=== PATIENT | female | born 1985 | race Caucasian/White ===

== ENCOUNTER 2018-01-22 11:21 | Emergency (ER) | payer OTHER, SELFPAY ==
[2018-01-22 11:35] VITALS: BP 131/92; PULSE 77; RESP 16; TEMP 36.8; O2SAT 95; BMI 25.6
--- NOTE | 2018-01-22 18:41 | ED.URI ---
HPI - URI/Sore Throat <REBECA Bosch - Last Filed: 01/22/18 18:46> General Chief Complaint: Upper Respiratory Symptoms Stated Complaint: COUGHING BLOOD,'SINUSY',FACE SWOLLEN Time Seen by Provider: 01/22/18 13:55 Source: patient Mode of arrival: ambulatory Limitations: no limitations History of Present Illness HPI Narrative: Patient is a healthy 32-year-old female who presents with chief complaint of upper respiratory symptoms, stating she has a sinus infection. She complains of sinus headache, facial pressure, nasal congestion sore throat cough and specks of blood on cough. She denies any chest pain, shortness of breath, nausea vomiting diarrhea or abdominal pain. She has taken xuuo-zui-jqowrli cold medication help feel better. She has not tried any nasal sprays or nasal medication. She states she has a sinus infection. Related Data Home Medications Medication Instructions Recorded Confirmed alprazolam 2 mg PO BID 01/22/18 01/22/18 dextroamphetamine-amphetamine 10 - 20 mg PO BID 01/22/18 01/22/18 fluoxetine 60 mg PO DAILY 01/22/18 01/22/18 norethindrone-ethin estradiol 1 tab PO DAILY 01/22/18 01/22/18 [Nortrel 1/35 (28)] Allergies Allergy/AdvReac Type Severity Reaction Status Date / Time No Known Drug Allergies Allergy Verified 01/22/18 11:34 Review of Systems <REBECA Bosch - Last Filed: 01/22/18 18:46> Review of Systems GENERAL: Denies chills, fatigue, malaise, fever, sweats. HEENT: See HPI RESPIRATORY: See HPI CARDIOVASCULAR: Denies chest pain, palpitations, orthopnea, edema, GASTROINTESTINAL: Denies nausea, vomiting, abdominal pain, diarrhea, constipation, melena. : Denies dysuria, frequency, incontinence, hematuria, urinary retention. MUSCULOSKELETAL: denies weakness, joint pain, or bony pain SKIN: Denies rash, skin lesions, or other NEUROLOGIC: Denies weakness, headache, numbness, change in speech, confusion, seizures, incoordination. PSYCHIATRIC: No concerning psychosocial issues. 12 point review of systems is negative except for those stated above Exam <REBECA Bosch - Last Filed: 01/22/18 18:46> Narrative Exam Narrative: GENERAL: This is a well-nourished, well-developed patient, no acute distress HEAD: Atraumatic. Normocephalic. No temporal or scalp tenderness. Patient has pain on palpation of frontal maxillary sinuses. EYES: Pupils equal round and reactive. Extraocular motions intact. No scleral icterus. No injection or drainage. ENT: Nose without bleeding, purulent drainage or septal hematoma. Throat without erythema, tonsillar hypertrophy or exudate. Uvula midline. Airway patent. TMs pearly arciniega bilaterally. No canal erythema. NECK: Trachea midline. No JVD or lymphadenopathy. Supple, nontender, no meningeal signs. CARDIOVASCULAR: Regular rate and rhythm without murmurs, gallops, or rubs. RESPIRATORY: Clear to auscultation. Breath sounds equal bilaterally. No wheezes, rales, or rhonchi. No cough on exam. No increased respiratory effort. GASTROINTESTINAL: Abdomen soft, non-tender, nondistended. No hepato-splenomegaly, or palpable masses. No guarding. EXTREMITIES: No clubbing, cyanosis, or edema. No joint tenderness, effusion, or edema noted. BACK: Nontender without deformity or crepitance. No flank tenderness. NEURO: AOx3. SKIN: No rash or erythema. Initial Vital Signs Initial Vital Signs: Vital Signs Temperature 98.2 F 01/22/18 11:35 Pulse Rate 77 01/22/18 11:35 Respiratory Rate 16 01/22/18 11:35 Blood Pressure 131/92 H 01/22/18 11:35 Pulse Oximetry 95 01/22/18 11:35 <Yusra Juárez DO - Last Filed: 01/23/18 07:57> Initial Vital Signs Initial Vital Signs: Vital Signs Temperature 98.2 F 01/22/18 11:35 Pulse Rate 77 01/22/18 11:35 Respiratory Rate 16 01/22/18 11:35 Blood Pressure 131/92 H 01/22/18 11:35 Pulse Oximetry 95 01/22/18 11:35 Course <YOON Bosch - Last Filed: 01/22/18 18:46> Vital Signs - 8 hr 01/22/18 11:35 Temperature 98.2 F Pulse Rate 77 Respiratory Rate 16 Blood Pressure 131/92 H Pulse Oximetry 95 <Yusra Juárez DO - Last Filed: 01/23/18 07:57> Vital Signs - 8 hr 01/22/18 11:35 Temperature 98.2 F Pulse Rate 77 Respiratory Rate 16 Blood Pressure 131/92 H Pulse Oximetry 95 MDM - URI/Sore Throat <DESIREE BoschP-BC - Last Filed: 01/22/18 18:46> MDM Narrative Medical decision making narrative: Patient is a healthy 32-year-old female presenting with a chief complaint of a sinus infection, nasal congestion since last Sunday. I discussed at length with her and her mother that sinus symptoms do not get treated with antibiotics unless she has signs of systemic illness until she has the 10-14 day kin. I encouraged at length use of Flonase as well as Neti pot or jay med sinus rinse in the meantime. I offered to get a chest x-ray, check for strep and track for flu but the patient declined all of that further workup. Given that she is hemodynamically stable and has an overall benign exam, I feel that this is an appropriate course. I discussed at length return precautions of shortness of breath, fever, worsening as well as follow up with primary care provider continued [id number] support. Patient has no questions or concerns upon discharge. Discharge Plan Departure Patient Disposition: Home Clinical Impression: Upper respiratory infection Discharge Date/Time: 01/22/18 14:53 Interventions: ED Discharge Assessment Last Done: 01/22/18 14:48 Instructions: DI for Viral Upper Respiratory Infection -- Adult Activity Restrictions/Additional Instructions: Please rest, push fluids take [id number]-[id number] medications as needed and able. I suggest new med sinus rinse and or Neti pot combined with Flonase to help with her sinus pressure and pain. Please follow-up with primary care provider. We do not prescribe antibiotics for sinus infection unless it hits the 10-14 day range, especially if you do not have fever. Please follow-up with primary care provider if you hit this time frame and do not feel any better. Prescriptions: No Action dextroamphetamine-amphetamine 20 mg tablet 10 - 20 mg PO BID RF: 0 alprazolam 2 mg tablet 2 mg PO BID RF: 0 fluoxetine 20 mg capsule 60 mg PO DAILY RF: 0 norethindrone-ethin estradiol [Nortrel ()] 1-35 mg-mcg tablet 1 tab PO DAILY RF: 0 <Yusra Juárez DO - Last Filed: 01/23/18 07:57> Cosign ED Attending Cosignature Attestation: I was immediately available in the department for consultation. Documentation has been reviewed. I agree with assessment and plan.
--- NOTE | 2018-01-22 18:45 | ED_ITS ---
HPI - URI/Sore Throat <REBECA Bosch - Last Filed: 01/22/18 18:46> General Chief Complaint: Upper Respiratory Symptoms Stated Complaint: COUGHING BLOOD,'SINUSY',FACE SWOLLEN Time Seen by Provider: 01/22/18 13:55 Source: patient Mode of arrival: ambulatory Limitations: no limitations History of Present Illness HPI Narrative: Patient is a healthy 32-year-old female who presents with chief complaint of upper respiratory symptoms, stating she has a sinus infection. She complains of sinus headache, facial pressure, nasal congestion sore throat cough and specks of blood on cough. She denies any chest pain, shortness of breath, nausea vomiting diarrhea or abdominal pain. She has taken over-the- counter cold medication help feel better. She has not tried any nasal sprays or nasal medication. She states she has a sinus infection. Related Data Home Medications Medication Instructions Recorded Confirmed alprazolam 2 mg PO BID 01/22/18 01/22/18 dextroamphetamine-amphetamine 10 - 20 mg PO BID 01/22/18 01/22/18 fluoxetine 60 mg PO DAILY 01/22/18 01/22/18 norethindrone-ethin estradiol 1 tab PO DAILY 01/22/18 01/22/18 [Nortrel 1/35 (28)] Allergies Allergy/AdvReac Type Severity Reaction Status Date / Time No Known Drug Allergies Allergy Verified 01/22/18 11:34 Review of Systems <REBECA Bosch - Last Filed: 01/22/18 18:46> Review of Systems GENERAL: Denies chills, fatigue, malaise, fever, sweats. HEENT: See HPI RESPIRATORY: See HPI CARDIOVASCULAR: Denies chest pain, palpitations, orthopnea, edema, GASTROINTESTINAL: Denies nausea, vomiting, abdominal pain, diarrhea, constipation, melena. : Denies dysuria, frequency, incontinence, hematuria, urinary retention. MUSCULOSKELETAL: denies weakness, joint pain, or bony pain SKIN: Denies rash, skin lesions, or other NEUROLOGIC: Denies weakness, headache, numbness, change in speech, confusion, seizures, incoordination. PSYCHIATRIC: No concerning psychosocial issues. 12 point review of systems is negative except for those stated above Exam <REBECA Bosch - Last Filed: 01/22/18 18:46> Narrative Exam Narrative: GENERAL: This is a well-nourished, well-developed patient, no acute distress HEAD: Atraumatic. Normocephalic. No temporal or scalp tenderness. Patient has pain on palpation of frontal maxillary sinuses. EYES: Pupils equal round and reactive. Extraocular motions intact. No scleral icterus. No injection or drainage. ENT: Nose without bleeding, purulent drainage or septal hematoma. Throat without erythema, tonsillar hypertrophy or exudate. Uvula midline. Airway patent. TMs pearly arciniega bilaterally. No canal erythema. NECK: Trachea midline. No JVD or lymphadenopathy. Supple, nontender, no meningeal signs. CARDIOVASCULAR: Regular rate and rhythm without murmurs, gallops, or rubs. RESPIRATORY: Clear to auscultation. Breath sounds equal bilaterally. No wheezes , rales, or rhonchi. No cough on exam. No increased respiratory effort. GASTROINTESTINAL: Abdomen soft, non-tender, nondistended. No hepato-splenomegaly , or palpable masses. No guarding. EXTREMITIES: No clubbing, cyanosis, or edema. No joint tenderness, effusion, or edema noted. BACK: Nontender without deformity or crepitance. No flank tenderness. NEURO: AOx3. SKIN: No rash or erythema. Initial Vital Signs Initial Vital Signs: Vital Signs Temperature 98.2 F 01/22/18 11:35 Pulse Rate 77 01/22/18 11:35 Respiratory Rate 16 01/22/18 11:35 Blood Pressure 131/92 H 01/22/18 11:35 Pulse Oximetry 95 01/22/18 11:35 <Yusra Juárez DO - Last Filed: 01/23/18 07:57> Initial Vital Signs Initial Vital Signs: Vital Signs Temperature 98.2 F 01/22/18 11:35 Pulse Rate 77 01/22/18 11:35 Respiratory Rate 16 01/22/18 11:35 Blood Pressure 131/92 H 01/22/18 11:35 Pulse Oximetry 95 01/22/18 11:35 Course <YOON Bosch - Last Filed: 01/22/18 18:46> Vital Signs - 8 hr 01/22/18 11:35 Temperature 98.2 F Pulse Rate 77 Respiratory Rate 16 Blood Pressure 131/92 H Pulse Oximetry 95 <Yusra Juárez DO - Last Filed: 01/23/18 07:57> Vital Signs - 8 hr 01/22/18 11:35 Temperature 98.2 F Pulse Rate 77 Respiratory Rate 16 Blood Pressure 131/92 H Pulse Oximetry 95 MDM - URI/Sore Throat <DESIREE BoschP-BC - Last Filed: 01/22/18 18:46> MDM Narrative Medical decision making narrative: Patient is a healthy 32-year-old female presenting with a chief complaint of a sinus infection, nasal congestion since last Sunday. I discussed at length with her and her mother that sinus symptoms do not get treated with antibiotics unless she has signs of systemic illness until she has the 10-14 day kin. I encouraged at length use of Flonase as well as Neti pot or jay med sinus rinse in the meantime. I offered to get a chest x-ray, check for strep and track for flu but the patient declined all of that further workup. Given that she is hemodynamically stable and has an overall benign exam, I feel that this is an appropriate course. I discussed at length return precautions of shortness of breath, fever, worsening as well as follow up with primary care provider continued [id number] support. Patient has no questions or concerns upon discharge. Discharge Plan Departure Patient Disposition: Home Clinical Impression: Upper respiratory infection Discharge Date/Time: 01/22/18 14:53 Interventions: ED Discharge Assessment Last Done: 01/22/18 14:48 Instructions: DI for Viral Upper Respiratory Infection -- Adult Activity Restrictions/Additional Instructions: Please rest, push fluids take onty-imh-wnnodei medications as needed and able. I suggest new med sinus rinse and or Neti pot combined with Flonase to help with her sinus pressure and pain. Please follow-up with primary care provider. We do not prescribe antibiotics for sinus infection unless it hits the 10-14 day range, especially if you do not have fever. Please follow-up with primary care provider if you hit this time frame and do not feel any better. Prescriptions: No Action dextroamphetamine-amphetamine 20 mg tablet 10 - 20 mg PO BID RF: 0 alprazolam 2 mg tablet 2 mg PO BID RF: 0 fluoxetine 20 mg capsule 60 mg PO DAILY RF: 0 norethindrone-ethin estradiol [Nortrel ()] 1-35 mg-mcg tablet 1 tab PO DAILY RF: 0 <Yusra Juárez DO - Last Filed: 01/23/18 07:57> Cosign ED Attending Cosignature Attestation: I was immediately available in the department for consultation. Documentation has been reviewed. I agree with assessment and plan.
== END 2018-01-22 14:53 | disposition home or self-care (01) ==
PROVIDERS: Emergency Provider Nurse Practitioner Family
DX: J06.9 Acute upper respiratory infection, unspecified (principal)
CPT/HCPCS: 99282

== ENCOUNTER 2020-06-03 15:19 | Emergency (ER) | payer OTHER, SELFPAY ==
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
[2020-06-03 15:30] VITALS: BP 130/79; PULSE 67; RESP 17; O2SAT 99
[2020-06-03 15:32] VITALS: BP 161/68; PULSE 82; RESP 20; TEMP 37.1; O2SAT 98; BMI 26.5
--- NOTE | 2020-06-03 15:49 | PC.NURSE ---
Pt's mother contacted per pt's request and asked to come see the pt
[2020-06-03 16:30] VITALS: BP 119/75; PULSE 64; RESP 15; O2SAT 100
[2020-06-03] MEDS: IBUPROFEN 400 MG TABLET 800 MG PO (16:55)
== END 2020-06-03 17:04 | disposition home or self-care (01) ==
PROVIDERS: Emergency Provider Emergency Medicine
DX: S16.1XXA Strain of muscle, fascia and tendon at neck level, initial encounter (principal); V49.40XA Driver injured in collision with unspecified motor vehicles in traffic accident, initial encounter
CPT/HCPCS: 71045; 72040; 99283

== ENCOUNTER 2020-06-09 19:55 | Emergency (ER) | payer OTHER, SELFPAY ==
[2020-06-09 20:08] VITALS: BP 112/75; PULSE 60; RESP 20; TEMP 36.7; O2SAT 98
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
== END 2020-06-10 00:47 | disposition home or self-care (01) ==
PROVIDERS: Emergency Provider Emergency Medicine
DX: F07.81 Postconcussional syndrome (principal); H53.8 Other visual disturbances; M54.2 Cervicalgia; R07.89 Other chest pain
CPT/HCPCS: 72125; 99281; 99284

== ENCOUNTER 2021-05-14 20:26 | Emergency (ER) | payer OTHER, MEDICAID, SELFPAY ==
[2021-05-14 20:33] VITALS: BP 126/92; PULSE 83; RESP 18; TEMP 36.9; O2SAT 96; BMI 26.5
--- NOTE | 2021-05-14 22:34 | DI.RAD.S_ITS ---
PROCEDURE: XR CHEST 1V INDICATIONS: chest pain TECHNIQUE: One view of the chest was acquired. COMPARISON: [facility], CR, XR CHEST 1V, 06/03/2020, 15:35. FINDINGS: Surgical changes and devices: None. Lungs and pleura: Lungs are clear. No pleural effusions or pneumothorax. Mediastinum: Mediastinal contours appear normal. Heart size is normal. Bones and chest wall: No suspicious bony lesions. Overlying soft tissues appear unremarkable. IMPRESSION: Normal for age, source of current chest pain symptoms is not seen. Dictated by: Slick Hall M.D. on 05/14/2021 at 23:18 Approved by: Slick Hall M.D. on 05/14/2021 at 23:19
[2021-05-14 22:55] LABS: Add Manual Diff / Slide Review NO; Basophils Absolute Auto 0 /uL (0-100); Basophils Percent Auto 0.3 % (0-2); Eosinophils Absolute Auto 100 /uL (0-450); Eosinophils Percent Auto 1.3 % (2-4); Hematocrit 42.2 % (36-46); Hemoglobin 14.3 g/dL (12.0-16.0); Lymphocytes Absolute Auto 3300 /uL (1100-4500); Lymphocytes Percent Auto 37.9 % (25-40); Mean Corpuscular HGB Conc 33.8 % (30-36); Mean Corpuscular Hemoglobin 29.2 PG (26-34); Mean Corpuscular Volume 86.5 fL (80-100); Monocytes Absolute Auto 800 /uL (0-900); Monocytes Percent Auto 9.2 % (3-14); Neutrophils Absolute Auto 4500 /uL (1500-7000); Neutrophils Percent Auto 51.3 % (50-75); Platelet Count 270 X10^3/uL (150-400); Red Blood Cell Count 4.88 X10^6/uL (4.0-5.2); Red Cell Distribution Width 13.9 % (11.6-14.8); White Blood Cell Count 8.7 X10^3/uL (4.5-11.0)
[2021-05-14] MEDS: LORazepam 0.5 MG TABLET 1 MG PO (22:59)
[2021-05-14 23:04] VITALS: PULSE 54; RESP 11
[2021-05-14 23:06] VITALS: BP 120/75; PULSE 50; RESP 13; O2SAT 100
[2021-05-14 23:06] LABS: Alanine Aminotransferase 15 IU/L (<35); Albumin 4.7 g/dL (3.5-5.0); Albumin Globulin Ratio 1.4 (1.0-2.8); Alkaline Phosphatase 65 U/L (38-126); Aspartate Aminotransferase 26 IU/L (14-36); BUN Creatinine Ratio 22.5 (6-22); Bilirubin Total 0.5 mg/dL (0.2-1.3); Blood Urea Nitrogen 16 mg/dL (7-17); Calcium 9.7 mg/dL (8.4-10.2); Carbon Dioxide 24 mmol/L (22-32); Chloride 103 mmol/L (98-107); Creatine Kinase 39 U/L (30-135); Estimated Glomerular Filt Rate > 60.0 mL/min (>60); Globulin 3.3 g/dL (1.7-4.1); Glucose 88 mg/dL (70-100); HEMOLYSIS < 15 (0-50); Lipase 103 U/L (23-300); Sodium 136 mmol/L (137-145)
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
[2021-05-14 23:18] LABS: Troponin I < 0.012 ng/mL (0.01-0.034)
[2021-05-14 23:30] VITALS: BP 133/78; PULSE 59; RESP 17; O2SAT 98
--- NOTE | 2021-05-14 23:56 | PC.NURSE ---
patient is having anxiety due to multiple life stressors. She is currently living in a VRBO, for a few weeks, she has family near by but still is struggling with her anxiety symptoms.
[2021-05-15] VITALS: BP 116/70; PULSE 59; RESP 11; O2SAT 98
== END 2021-05-15 00:29 | disposition home or self-care (01) ==
PROVIDERS: Emergency Provider Emergency Medicine
DX: F41.9 Anxiety disorder, unspecified (principal); F07.81 Postconcussional syndrome; R07.9 Chest pain, unspecified
CPT/HCPCS: 36415; 71045; 80053; 82550; 82553; 83690; 84484; 85025; 93005; 93010; 99284

== ENCOUNTER 2022-02-25 04:51 | Emergency (ER) | payer OTHER, MEDICAID, SELFPAY ==
[2022-02-25 04:57] VITALS: BP 127/79; PULSE 103; RESP 18; TEMP 37.3; O2SAT 96
[2022-02-25 05:55] LABS: Influenza A - CEPHEID Flu A NEGATIVE (NEGATIVE); Influenza B - CEPHEID Flu B NEGATIVE (NEGATIVE); Respiratory Syncytial Virus Negative (Negative)
[2022-02-25 06:03] LABS: COVID-19 CEPHEID 4-PLEX PCR Negative (Negative)
--- NOTE | 2022-02-25 06:22 | ED_ITS ---
HPI - General Adult General Chief complaint: Upper Respiratory Symptoms Stated complaint: SORE THROAT/COUGH Time Seen by Provider: 02/25/22 05:38 Source: patient Mode of arrival: Ambulatory Limitations: no limitations History of Present Illness HPI narrative: 28-year-old female who is here for evaluation of a couple days of sinus congestion, sore throat, cough, fullness in her ears. She has been taking Benadryl at home at night without much improvement. No fevers. No skin rashes. No problems breathing. Has had decreased oral intake because of the sore throat. Related Data Home Medications Medication Instructions Recorded Confirmed propranolol 60 mg capsule,24 60 mg PO DAILY 12/27/21 01/24/22 hr,extended release sertraline 100 mg tablet 100 mg PO DAILY 12/27/21 01/24/22 Previous Rx's Medication Instructions Recorded acyclovir 400 mg tablet 400 mg PO TID #30 tabs 01/04/22 quetiapine 25 mg tablet 25 mg PO BEDTIME #90 tabs 01/04/22 alprazolam 1 mg tablet 1 mg PO BID PRN anxiety #30 tabs 02/14/22 Allergies Allergy/AdvReac Type Severity Reaction Status Date / Time No Known Drug Allergies Allergy Verified 01/24/22 11:42 Review of Systems Constitutional Constitutional: Reports system reviewed and no additional complaints, except as documented ENT Ears, Nose, Mouth, and Throat: Reports system reviewed and no additional complaints, except as documented Respiratory Respiratory: Reports system reviewed and no additional complaints, except as documented Integumentary/Breasts Skin/Breast: Reports system reviewed and no additional complaints, except as documented Allergic/Immunologic Allergic/Immunologic: Reports system reviewed and no additional complaints, except as documented Patient History Medical History Abnormal Pap smear of cervix ADHD (~2011) Anxiety (~2011) Bipolar disorder (~2011) Cervical cancer Chronic back pain (~2020) Depression (~2011) Endometriosis Human papilloma virus Insomnia Painful menstrual periods Shoulder pain Surgical History (Updated 01/23/22 @ 22:12 by Jessika Caputo) Anesthesia H/O LEEP (~2016) History of endometrial ablation (~2016) Social History Smoking Status: Never smoker Smoking Status: Never smoker alcohol intake frequency: a few times a week Substance Use Type: marijuana Exam Initial Vital Signs Initial Vital Signs: Vital Signs Temperature 99.1 F 02/25/22 04:57 Pulse Rate 103 H 02/25/22 04:57 Respiratory Rate 18 02/25/22 04:57 Blood Pressure 127/79 02/25/22 04:57 Pulse Oximetry 96 02/25/22 04:57 Oxygen Delivery Method 02/25/22 04:57 Const General: cooperative, comfortable, well developed and No ill appearing HENMT Ears: EAC's normal and TM abnormal bulging bilaterally Mouth: oral mucosae normal and moist mucous membranes Throat: posterior oropharynx normal Resp Effort & Inspection: normal respiratory effort Auscultation: clear to auscultation bilaterally Skin General: no rashes or lesions noted Neuro General: patient alert, patient awake and moves all extremities Course Orders Ordered: ED Orders 02/25/22 05:00 Covid-19 + FLU A/B + RSV - PCR Stat 02/25/22 05:03 Consult to MANAGER TECHNICAL TRAINING - [employer] Professional Stat Vital Signs Vital signs: Vital Signs - 8 hr 02/25/22 04:57 Temperature 99.1 F Pulse Rate 103 H Respiratory Rate 18 Blood Pressure 127/79 Pulse Oximetry 96 Oxygen Delivery Method Room Air Medical Decision Making Lab Data Labs: Lab Results 02/25/22 Range/Units 05:00 SARS-CoV-2 (PCR) Negative (Negative) Influenza A (RT-PCR) Flu a negative (NEGATIVE) Influenza B (RT-PCR) Flu b negative (NEGATIVE) RSV (PCR) Negative (Negative) Point of Care Testing Rapid Strep A Negative Point of care testing: Point of Care Testing Rapid Strep A Negative MDM Narrative Medical decision making narrative: Rapid strep negative. Flu COVID and RSV are negative. She has history and physical consistent with upper respiratory infection. No indication for antibiotics. We did discuss things that she can tried home to try to help with her symptoms. She was given return precautions. She expressed understanding and agreement. Discharge Plan Departure Patient Disposition: Home Clinical Impression: Upper respiratory infection Instructions: DI for Viral Upper Respiratory Infection -- Adult Activity Restrictions/Additional Instructions: You can try antihistamines such as Benadryl or you could also try the daily medicines such as Claritin or Jaja Zyrtec. You can also try nasal sprays such as Nasonex or Flonase. The generic version of these medications are very appropriate. Sure to increase your fluid intake. You continue to take Tylenol/ibuprofen for any fevers or body aches. Return to the emergency department for any new or worsening symptoms. Prescriptions: No Action sertraline 100 mg tablet 100 mg PO DAILY propranolol 60 mg capsule,extended release 24 hr 60 mg PO DAILY Hold Instructions: pt stopped acyclovir 400 mg tablet 400 mg PO TID Qty: 30 3RF quetiapine 25 mg tablet 25 mg PO BEDTIME Qty: 90 0RF Rx Instructions: Take one tab nightly for 2 weeks, then 2 tabs nightly for 2 weeks, then 3 tabs nightly alprazolam 1 mg tablet 1 mg PO BID PRN (Reason: anxiety) Qty: 30 0RF Referrals: Marychuy Bueno MD [Primary Care Provider] -
[2022-02-25 06:35] VITALS: BP 124/70; PULSE 88; RESP 18; TEMP 36.9; O2SAT 97
== END 2022-02-25 06:36 | disposition home or self-care (01) ==
PROVIDERS: Emergency Provider Emergency Medicine; PCP Family Medicine
DX: J06.9 Acute upper respiratory infection, unspecified (principal); Z20.822 Contact with and (suspected) exposure to COVID-19
CPT/HCPCS: 0241U; 87880; 99282

== ENCOUNTER 2022-03-12 17:53 | Emergency (ER) | payer OTHER, MEDICAID, SELFPAY ==
[2022-03-12 18:02] VITALS: BP 149/84; PULSE 127; RESP 24; TEMP 37; O2SAT 99; BMI 28.3
[2022-03-12 19:35] LABS: Add Manual Diff / Slide Review NO; Basophils Absolute Auto 0 /uL (0-100); Basophils Percent Auto 0.3 % (0-2); Eosinophils Absolute Auto 100 /uL (0-450); Eosinophils Percent Auto 1.2 % (2-4); Hematocrit 38.5 % (36-46); Lymphocytes Absolute Auto 2900 /uL (1100-4500); Lymphocytes Percent Auto 35.4 % (25-40); Mean Corpuscular HGB Conc 33.7 % (30-36); Mean Corpuscular Hemoglobin 28.3 PG (26-34); Mean Corpuscular Volume 83.9 fL (80-100); Monocytes Absolute Auto 600 /uL (0-900); Monocytes Percent Auto 7.1 % (3-14); Neutrophils Absolute Auto 4600 /uL (1500-7000); Platelet Count 442 X10^3/uL (150-400); Red Blood Cell Count 4.58 X10^6/uL (4.0-5.2); Red Cell Distribution Width 13.4 % (11.6-14.8); White Blood Cell Count 8.2 X10^3/uL (4.5-11.0)
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
[2022-03-12 19:49] LABS: Acetaminophen < 10 ug/mL (10-30); Alanine Aminotransferase 19 IU/L (<35); Alkaline Phosphatase 74 U/L (38-126); Aspartate Aminotransferase 24 IU/L (14-36); BUN Creatinine Ratio 15.6 (6-22); Bilirubin Total 0.2 mg/dL (0.2-1.3); Blood Urea Nitrogen 10 mg/dL (7-17); Calcium 8.9 mg/dL (8.4-10.2); Carbon Dioxide 27 mmol/L (22-32); Chloride 100 mmol/L (98-107); Estimated Glomerular Filt Rate > 60 mL/min (>60); Ethanol (ETOH) < 10 mg/dL; Glucose 100 mg/dL (70-100); HEMOLYSIS < 15 (0-50); Potassium 3.7 mmol/L (3.4-5.1); Salicylate < 1.0 mg/dL (<20); Sodium 139 mmol/L (137-145); Total Protein 8.1 g/dL (6.3-8.2)
[2022-03-12 19:58] LABS: UR Morphine/Opiate cutoff 300 Negative (Negative); Ur Creatinine Normal (Normal); Ur Specific Gravity Normal (Normal); Urine Amphetamines Negative (Negative); Urine Barbiturates Negative (Negative); Urine Benzodiazepines Positive (Negative); Urine Cocaine Negative (Negative); Urine MDMA Negative (Negative); Urine Methadone Negative (Negative); Urine Methamphetamines Negative (Negative); Urine Oxycodone Negative (Negative); Urine Phencyclidine Negative (Negative); Urine Tetrahydrocannabinol Positive (Negative); Urine Tricyclic Antidepressant Negative (Negative); Urine pH Normal (Normal)
[2022-03-12 20:00] LABS: Bacteria Urine Few (2-10); Culture Indicated Urine Specimen Cultured; RBC Urine 0-1/HPF (0-5/HPF); Squamous Epithelial Cell Urine 1-5 /HPF (0-5/HPF); WBC Urine 5-10/HPF (0-5/HPF)
[2022-03-12 20:19] LABS: Thyroid Stimulating Hormone 1.57 uIU/mL (0.47-4.68)
[2022-03-12] MEDS: clonazePAM 0.5 MG TABLET 1 MG PO (21:31)
[2022-03-12] MEDS: PROPRANOLOL 10 MG TABLET 20 MG PO (21:31)
[2022-03-12 21:49] LABS: Albumin 4.4 g/dL (3.5-5.0); Albumin Globulin Ratio 1.2 (1.0-2.8); Globulin 3.7 g/dL (1.7-4.1)
[2022-03-12 23:17] VITALS: BP 138/74; PULSE 68; RESP 14; TEMP 36.3; O2SAT 99
== END 2022-03-12 23:21 | disposition home or self-care (01) ==
PROVIDERS: Emergency Provider Emergency Medicine; PCP Family Medicine
DX: F07.81 Postconcussional syndrome (principal); F41.9 Anxiety disorder, unspecified; H93.13 Tinnitus, bilateral; Z60.4 Social exclusion and rejection
CPT/HCPCS: 80053; 80305; 80320; 80329; 81003; 81015; 81025; 84439; 84443; 85025; 87086; 93005; 99284; G0480

== ENCOUNTER → 2023-08-09 18:48 | Outpatient (CLI) | payer OTHER, MEDICAID, SELFPAY ==
[2023-08-09 20:10] LABS: Influenza A - CEPHEID Flu A NEGATIVE (NEGATIVE); Influenza B - CEPHEID Flu B NEGATIVE (NEGATIVE); Respiratory Syncytial Virus Negative (Negative)
[2023-08-09 20:14] LABS: COVID-19 CEPHEID 4-PLEX PCR Negative (Negative)
== END ==
PROVIDERS: PCP Family Medicine; Visit Provider Nurse Practitioner Family
DX: R05.9 Cough, unspecified (principal); J02.9 Acute pharyngitis, unspecified
CPT/HCPCS: 87635; 87400 ×2; 87420; 0241U; 87070; 87147

== ENCOUNTER → 2024-03-19 14:46 | Outpatient (CLI) | payer OTHER, SELFPAY ==
--- NOTE | 2024-03-19 14:50 | DI.RAD.S_ITS ---
PROCEDURE: XR CHEST 2V INDICATIONS: Cough, DEAN TECHNIQUE: 2 views of the chest were acquired. COMPARISON: [facility], CR, XR CHEST 1V, 05/14/2021, 22:41. FINDINGS: Surgical changes and devices: None. Lungs and pleura: Lungs are clear. No pleural effusions or pneumothorax. Mediastinum: Mediastinal contours are normal. Heart size is normal. Bones and chest wall: No suspicious bony abnormalities. Soft tissues appear unremarkable. IMPRESSION: No acute cardiopulmonary pathology. Dictated by: Sergio Estrada M.D. on 03/19/2024 at 16:05 Approved by: Sergio Estrada M.D. on 03/19/2024 at 16:05
== END ==
PROVIDERS: PCP Family Medicine; Referring Provider Physician Assistant Surgical; Visit Provider Physician Assistant Surgical
DX: R05.1 Acute cough (principal)
CPT/HCPCS: 0241U; 71046

== ENCOUNTER → 2024-03-19 16:07 | Outpatient (CLI) | payer OTHER, SELFPAY ==
[2024-03-19 16:57] LABS: COVID-19 CEPHEID 4-PLEX PCR Negative (Negative); Influenza A - CEPHEID Flu A POSITIVE (NEGATIVE); Influenza B - CEPHEID Flu B NEGATIVE (NEGATIVE); Respiratory Syncytial Virus Negative (Negative)
== END ==
PROVIDERS: PCP Family Medicine; Visit Provider Physician Assistant Surgical
DX: R05.1 Acute cough (principal)
CPT/HCPCS: 87635; 87400 ×2; 87420; 0241U

== ENCOUNTER 2024-06-06 21:46 | Emergency (ER) | payer OTHER, SELFPAY ==
[2024-06-06 21:50] VITALS: BP 143/67; PULSE 101; RESP 18; TEMP 36.1; O2SAT 96; BMI 31.1
[2024-06-06 23:00] VITALS: BP 139/77; PULSE 92; RESP 16; O2SAT 100
--- NOTE | 2024-06-06 23:50 | ED_ITS ---
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 Today at work she bent over and was lifting some beer into a cooler and felt a pop in the trapezius area of her neck and back. After that is having increased pain and heaviness into the right arm. She is not able to independently lift it or externally rotate. She is neurovascularly intact. Related Data Home Medications Medication Instructions Recorded Confirmed propranolol 60 mg capsule,24 60 mg PO DAILY 12/27/21 03/19/24 hr,extended release Previous Rx's Medication Instructions Recorded quetiapine 25 mg tablet See Rx Instructions .Route 06/05/22 .COMPLEX #90 tabs clonazepam 0.5 mg tablet 0.5 mg PO DAILY #30 tabs 06/21/22 propranolol 20 mg tablet See Rx Instructions .Route 09/18/22 .COMPLEX #60 tabs alprazolam 1 mg tablet 1 mg PO BID PRN anxiety #30 tabs 11/21/22 sertraline 100 mg tablet 100 mg PO DAILY #30 tabs 03/12/23 acyclovir 400 mg tablet 400 mg PO TID #30 tabs 03/07/24 benzonatate 200 mg capsule 200 mg PO BID PRN cough #30 caps 03/19/24 ipratropium bromide 21 mcg (0.03 2 spray intranasal BID PRN nasal 03/19/24 %) nasal spray congestion #30 mL oxycodone-acetaminophen 5 mg-325 1 tab PO Q6H PRN pain #14 tabs 06/07/24 mg tablet Allergies Allergy/AdvReac Type Severity Reaction Status Date / Time No Known Drug Allergies Allergy Verified 03/19/24 14:08 Review of Systems Review of Systems Narrative: Pertinent positive and negative findings as per HPI Patient History Medical History Insomnia Depression (~2011) Anxiety (~2011) Shoulder pain Chronic back pain (~2020) Painful menstrual periods Human papilloma virus Endometriosis Abnormal Pap smear of cervix Cervical cancer Bipolar disorder (~2011) ADHD (~2011) Surgical History Anesthesia H/O LEEP (~2017) History of endometrial ablation (~2017) Social History Smoking Status: Never smoker Smoking Status: Never smoker alcohol intake frequency: 0-2 drinks per day Exam Initial Vital Signs Initial Vital Signs: Vital Signs Temperature 97 F L 06/06/24 21:50 Pulse Rate 101 H 06/06/24 21:50 Respiratory Rate 18 06/06/24 21:50 Blood Pressure 143/67 H 06/06/24 21:50 Pulse Oximetry 96 06/06/24 21:50 Oxygen Delivery Method Room Air 06/06/24 21:50 General: Alert appropriate in no acute distress Respiratory: Able to speak in full sentences, no obvious respiratory distress Skin: No obvious rashes, warm and dry Neurologic: Grossly intact no obvious asymmetries or abnormalities Psych: appropriate insight and affect, cooperative Extremity: She has some paraspinous tenderness along the cervical spine extending into significant tenderness midportion of the trapezius muscle on the right side. This seems to extend to the posterior portion of the rotator cuff. No clavicular, AC joint or proximal humeral pain or discomfort. She is able to fully extend her elbow and wrist without pain if the humerus is stabilized. She is neurovascularly intact Course Vital Signs Vital signs: Vital Signs - 8 hr 06/06/24 21:50 Temperature 97 F L Pulse Rate 101 H Respiratory Rate 18 Blood Pressure 143/67 H Pulse Oximetry 96 Oxygen Delivery Method Room Air MDM - Back Pain/Injury MDM Narrative Medical decision making narrative: 39-year-old woman with acute pain in the trapezius and posterior rotator cuff area of the right shoulder. She describes an initial minor injury 2-3 weeks ago and then while reaching down in lifting container earlier today felt a dramatic pop in the posterior portion of her shoulder. Exam does not show we will significant bruising or contusion. I do not think that this is a cervical radiculopathy. She is able to straighten her arm if her humerus stabilized but is not able to independently move her humerus abduction, adduction, internal external rotation without significant pain. There is pain throughout the center portion of the trapezius muscle. I suspect that this is either trapezius muscle tear or tear into the posterior portion of the rotator cuff. She is tender enough that more thorough exam is challenging at this point and specific diagnosis is not able to be elucidated with physical exam. Discussed pain control, ice, sling use and follow up with primary care physician. Once the pain is not quite so severe and were able to more localize area of concern she likely will benefit from advanced imaging such as MRI as an outpatient. At this point she is safe for discharge home Procedure: Right sling placed by nursing staff. Patient is more comfortable with support. She was neurovascularly intact pre and post placement. Discharge Plan Departure Patient Disposition: Home Clinical Impression: Shoulder sprain Qualifiers: Encounter type: initial encounter Shoulder sprain type: unspecified sprain Laterality: right Qualified Code(s): S43.401A - Unspecified sprain of right shoulder joint, initial encounter Instructions: DI for Shoulder Sprain Activity Restrictions/Additional Instructions: Thank you for coming in today You clearly injured something in the posterior part of your trapezius muscle into the back part of your shoulder. You are having too much pain right now for me to do a more complete exam to determine the exact location of the injury. As the pain improves slightly your primary care physician we will need to see you to determine what the next steps for definitive diagnosis and treatment will be. I suspect you will need an MRI for final diagnosis. In the meantime, using 400 mg of ibuprofen (2 [id number] pills) and 1 Tylenol every 6 hours can be very helpful in controlling pain. For severe pain you can use to ibuprofen and 1 Percocet. Percocet is a narcotic we will cause constipation and does have the potential for addiction. It should not be mixed with benzodiazepines such as clonazepam or alprazolam. A prescription was electronically transmitted to [facility] in [place] If you find that you are getting worse or develop any new symptoms, please feel free to return to the emergency department for further evaluation. Prescriptions: New oxycodone-acetaminophen 5-325 mg tablet 1 tab PO Q6H PRN (Reason: pain) Qty: 14 0RF No Action benzonatate 200 mg capsule 200 mg PO BID PRN (Reason: cough) Qty: 30 0RF ipratropium bromide 21 mcg (0.03 %) spray,non-aerosol 2 spray intranasal BID PRN (Reason: nasal congestion) Qty: 30 0RF Rx Instructions: administer into each nostril propranolol 60 mg capsule,extended release 24 hr 60 mg PO DAILY Hold Instructions: pt stopped quetiapine 25 mg tablet See Rx Instructions .ROUTE .COMPLEX Qty: 90 1RF Dose Instruction: TAKE 3 TABLETS (75mg) BY MOUTH NIGHTLY Rx Instructions: TAKE 3 TABLETS (75mg) BY MOUTH NIGHTLY clonazepam 0.5 mg tablet 0.5 mg PO DAILY Qty: 30 0RF propranolol 20 mg tablet See Rx Instructions .ROUTE .COMPLEX Qty: 60 0RF Dose Instruction: take 1 tablet by mouth twice a day if needed for anxiety Rx Instructions: take 1 tablet by mouth twice a day if needed for anxiety alprazolam 1 mg tablet 1 mg PO BID PRN (Reason: anxiety) Qty: 30 0RF sertraline 100 mg tablet 100 mg PO DAILY Qty: 30 3RF acyclovir 400 mg tablet 400 mg PO TID Qty: 30 3RF Referrals: Marychuy Bueno MD [Primary Care Provider] - Stand Alone Forms: Patient Portal/API/Survey
[2024-06-07 00:30] VITALS: BP 126/66; PULSE 79; RESP 16; O2SAT 98
[2024-06-07] MEDS: OXYCODONE/APAP 5/325 PREPACK 1 BOTTLE MISC (00:42)
== END 2024-06-07 00:59 | disposition home or self-care (01) ==
PROVIDERS: Emergency Provider Emergency Medicine; PCP Family Medicine
DX: S43.401A Unspecified sprain of right shoulder joint, initial encounter (principal); X50.0XXA Overexertion from strenuous movement or load, initial encounter
CPT/HCPCS: 99281; 99283

== ENCOUNTER 2024-11-21 11:53 | Emergency (ER) | payer OTHER, SELFPAY ==
[2024-11-21 12:02] VITALS: BP 122/81; PULSE 104; RESP 16; TEMP 36.9; O2SAT 100; BMI 26.5
--- NOTE | 2024-11-21 12:06 | DI.RAD.S_ITS ---
PROCEDURE: XR SHOULDER RT MIN 2V INDICATIONS: pain TECHNIQUE: 3 views of the shoulder were acquired. COMPARISON: None. FINDINGS: Bones: No fractures or dislocations. No suspicious bony lesions. Visualized ribs appear intact. Soft tissues: No suspicious soft tissue calcifications. IMPRESSION: No acute osseous abnormality. If pain persists with conservative management, consider repeat x-ray in 10-14 days or cross-sectional imaging. Dictated by: Micah Mccormick M.D. on 11/21/2024 at 13:10 Approved by: Micah Mccormick M.D. on 11/21/2024 at 13:20
--- NOTE | 2024-11-21 12:33 | ED.UPPEXIN ---
HPI - Extremity Injury (Upper) <Ashley Collins PA-C - Last Filed: 11/21/24 14:36> General Chief Complaint: Extremity Injury, Upper Stated Complaint: Hurt right shoulder Time Seen by Provider: 11/21/24 12:14 History of Present Illness HPI narrative: Ms. Armstrong is a very pleasant 39-year-old female with a past medical history of anxiety and depression, right shoulder injury in May of this year who presents to the emergency department for acute on chronic right shoulder pain x1 day. Patient initially had a shoulder sprain back in May while lifting at work. She was not able to follow up with Orthopedics and insurance did not approve MRI. Pain would somewhat come and go but she consistently felt a large lump on her right trapezius. Yesterday this pain got much worse and she is now having significant difficulty and pain with range of motion of the right shoulder. She occasionally has numbness/tingling sensation going down the arm. No neck pain, trauma, no injury, fevers, chills. She is left-hand dominant. She took cyclobenzaprine prior to arrival which was prescribed by her primary care doctor. Related Data Previous Rx's ?Medication ?Instructions ?Recorded alprazolam 1 mg tablet 1 mg PO BID PRN anxiety #30 tabs 11/21/22 acyclovir 400 mg tablet 400 mg PO TID #30 tabs 03/07/24 cyclobenzaprine 5 mg tablet 5 mg PO BEDTIME PRN muscle spasm 11/07/24 #30 tabs lidocaine 5 % topical patch 1 patch topical DAILY #30 ea 11/21/24 (Lidoderm) Allergies Allergy/AdvReac Type Severity Reaction Status Date / Time No Known Drug Allergies Allergy Verified 09/24/24 15:32 Review of Systems <Ashley Collins PA-C - Last Filed: 11/21/24 14:36> Review of Systems ROS Unobtainable: All systems reviewed & are unremarkable except as noted in HPI and below Patient History <Ashley Collins PA-C - Last Filed: 11/21/24 14:36> Medical History Insomnia Depression (~2011) Anxiety (~2011) Shoulder pain Chronic back pain (~2020) Painful menstrual periods Human papilloma virus Endometriosis Abnormal Pap smear of cervix Cervical cancer Bipolar disorder (~2011) ADHD (~2011) Surgical History Anesthesia H/O LEEP (~2016) History of endometrial ablation (~2016) alcohol intake frequency: 0-2 drinks per day Exam <Ashley Collins PA-C - Last Filed: 11/21/24 14:36> Narrative Exam Narrative: GENERAL: 39 year old patient appears stated age. Well-developed patient, in no acute distress. HEAD: Atraumatic. Normocephalic. EYES: No scleral icterus. No injection or drainage. NECK: Trachea midline. Cervical ROM intact. No midline cervical tenderness. CARDIOVASCULAR: Regular rate RESPIRATORY: ?Nonlabored respirations. ?Speaking in clear, full sentences. EXTREMITIES: Tenderness palpation of right scapular/superior trapezius region with a palpable lump/mass in the right superior trapezius. Patient has active right shoulder abduction is limited to 90?, passive about 125?. No pain or tenderness with right elbow, right wrist, 2+ radial pulses bilaterally, sensation intact to light touch in the distribution of median, radial, ulnar nerves bilaterally. BACK: No midline tenderness NEURO: AOx3. ?Clear speech. ? SKIN: No rash or erythema of visible areas Initial Vital Signs Initial Vital Signs: Vital Signs Temperature 98.5 F 11/21/24 12:02 Pulse Rate 104 H 11/21/24 12:02 Respiratory Rate 16 11/21/24 12:02 Blood Pressure 122/81 11/21/24 12:02 Pulse Oximetry 100 11/21/24 12:02 Oxygen Delivery Method Room Air 11/21/24 12:02 <Arnie Funes MD - Last Filed: 11/25/24 07:39> Initial Vital Signs Initial Vital Signs: Vital Signs Temperature 98.5 F 11/21/24 12:02 Pulse Rate 104 H 11/21/24 12:02 Respiratory Rate 16 11/21/24 12:02 Blood Pressure 122/81 11/21/24 12:02 Pulse Oximetry 100 11/21/24 12:02 Oxygen Delivery Method Room Air 11/21/24 12:02 Course <Ashley Collins PA-C - Last Filed: 11/21/24 14:36> Orders Ordered: Discontinued Medications Ketorolac Tromethamine (Ketorolac 30 Mg/Ml Vial) 30 mg IM NOW ONE Stop: 11/21/24 12:42 Last Admin: 11/21/24 12:55 Dose: 30 mg Documented By: JENNY Lidocaine (Lidocaine 5% Patch) 1 each TOP NOW ONE Stop: 11/21/24 12:42 Last Admin: 11/21/24 12:54 Dose: 1 each Documented By: JENNY Ondansetron HCl (Ondansetron 4 Mg Odt) 4 mg SL NOW ONE Stop: 11/21/24 12:42 Last Admin: 11/21/24 12:55 Dose: 4 mg Documented By: SB Vital Signs Vital signs: Vital Signs - 8 hr 11/21/24 12:02 Temperature 98.5 F Pulse Rate 104 H Respiratory Rate 16 Blood Pressure 122/81 Pulse Oximetry 100 Oxygen Delivery Method Room Air <Arnie Funes MD - Last Filed: 11/25/24 07:39> Orders Ordered: Discontinued Medications Ketorolac Tromethamine (Ketorolac 30 Mg/Ml Vial) 30 mg IM NOW ONE Stop: 11/21/24 12:42 Last Admin: 11/21/24 12:55 Dose: 30 mg Documented By: JENNY Lidocaine (Lidocaine 5% Patch) 1 each TOP NOW ONE Stop: 11/21/24 12:42 Last Admin: 11/21/24 12:54 Dose: 1 each Documented By: JENNY Ondansetron HCl (Ondansetron 4 Mg Odt) 4 mg SL NOW ONE Stop: 11/21/24 12:42 Last Admin: 11/21/24 12:55 Dose: 4 mg Documented By: JENNY Vital Signs Vital signs: Vital Signs - 8 hr 11/21/24 12:02 Temperature 98.5 F Pulse Rate 104 H Respiratory Rate 16 Blood Pressure 122/81 Pulse Oximetry 100 Oxygen Delivery Method Room Air MDM - Extremity Injury (Upper) <Ashley Collins PA-C - Last Filed: 11/21/24 14:36> Medical Records Attestation: I reviewed the patient's medical records. Imaging Data Right Shoulder XR: Radiologist's Impression: PROCEDURE: XR SHOULDER RT MIN 2V INDICATIONS: pain TECHNIQUE: 3 views of the shoulder were acquired. COMPARISON: None. FINDINGS: Bones: No fractures or dislocations. No suspicious bony lesions. Visualized ribs appear intact. Soft tissues: No suspicious soft tissue calcifications. IMPRESSION: No acute osseous abnormality. If pain persists with conservative management, consider repeat x-ray in 10-14 days or cross-sectional imaging. Dictated by: Micah Mccormick M.D. on 11/21/2024 at 13:10 Approved by: Micah Mccormick M.D. on 11/21/2024 at 13:20 [facility] Narrative Medical decision making narrative: 39-year-old female with a past medical history of anxiety and depression, right shoulder injury in May of this year who presents to the emergency department for acute on chronic right shoulder pain x1 day. Differential diagnosis includes but is not limited to right shoulder sprain, strain, rotator cuff tear, trapezius tear,, fracture, dislocation etc. On exam patient is in no acute distress, nontoxic appearing, vital signs appropriate. She has been dealing with right shoulder pain since May however it got much worse last night with no apparent repeat injury. She does have a palpable mass on the right superior trapezius region that could potentially be sequela of torn muscle. She has never had any imaging done on this right shoulder, insurance will not approve MRI. We will obtain baseline x-ray today, treat pain with Toradol, Lidoderm and also treat her with Zofran as the pain occasionally makes her nauseous. Patient warrants follow up with orthopedics for MRI in addition to physical therapy. X-ray reveals no acute osseous abnormality, no fractures or dislocations. Had an extensive discussion with the patient about importance of follow up with Orthopedics for further management. Discussed supportive care including ibuprofen, acetaminophen, heat, ice, sling, cyclobenzaprine, Lidoderm. Also discussed stretching the shoulder daily to prevent frozen shoulder. Discussed follow up with PCP, ortho, return precautions. Patient verbalized understanding of all information agreeable with the plan. She is actually feeling much better, stable for discharge home. Discharge Plan Departure Patient Disposition: Home Clinical Impression: Sprain of right shoulder Qualifiers: Encounter type: initial encounter Shoulder sprain type: unspecified sprain Qualified Code(s): S43.401A - Unspecified sprain of right shoulder joint, initial encounter Instructions: DI for Shoulder Sprain Activity Restrictions/Additional Instructions: Dear Nathaniel, Thank you for coming to the emergency room. I am sorry you have been dealing with his right shoulder pain. Physical exam does reveal signs concerning for a possible rotator cuff or muscle tear or injury. Please follow up with [facility] for further management. Use the sling for comfort however please be sure to stretcher shoulder every day to prevent frozen shoulder. Please use ibuprofen and acetaminophen for her pain in addition to the topical numbing patches and heat and ice therapy. Please return to the ER if you develop any new or worsening symptoms or severe pain. Please follow up with your primary care doctor within the next 2-3 days for ER follow-up. (If you do not have a PCP you can call [phone]. ?to schedule an appointment with an [facility] Primary Care Provider) IF YOU DEVELOP ANY NEW OR WORSENING SYMPTOMS, RETURN TO THE ER! Please read the attached instructions, they highlight more specific treatments and interventions for you at home. Thank you for letting me participate in your care, Ashley Collins PA-C Prescriptions: New lidocaine [Lidoderm] 5 % adhesive patch,medicated 1 patch topical DAILY Qty: 30 0RF Rx Instructions: leave on most painful area for up to 12 hrs No Action alprazolam 1 mg tablet 1 mg PO BID PRN (Reason: anxiety) Qty: 30 0RF acyclovir 400 mg tablet 400 mg PO TID Qty: 30 3RF cyclobenzaprine 5 mg tablet 5 mg PO BEDTIME PRN (Reason: muscle spasm) Qty: 30 0RF Referrals: Rizwan Hand MD [Physician, Orthopedic Surgery] Referral Note: Right shoulder injury Marychuy Bueno MD [Primary Care Provider, Family Practice] Stand Alone Forms: Patient Portal/API, Work Release Note ED Sign-out <Arnie Funes MD - Last Filed: 11/25/24 07:39> [facility]: I was immediately available in the department for consultation. ?This documentation has been reviewed and I agree with assessment and plan. Supervised by Arnie Funes MD
[2024-11-21] MEDS: LIDOCAINE 5% PATCH 1 EACH TOP (12:54)
[2024-11-21] MEDS: ONDANSETRON 4 MG ODT SL (12:55)
[2024-11-21] MEDS: KETOROLAC 30 MG/ML VIAL IM (12:55)
[2024-11-21 14:59] VITALS: BP 123/72; PULSE 59; RESP 19; O2SAT 100
== END 2024-11-21 14:59 | disposition home or self-care (01) ==
PROVIDERS: Emergency Provider Physician Assistant; PCP Family Medicine
DX: S43.401A Unspecified sprain of right shoulder joint, initial encounter (principal)
CPT/HCPCS: 73030; 96372; 99283; J1885

== ENCOUNTER → 2025-01-05 18:33 | Outpatient (CLI) | payer OTHER, SELFPAY ==
--- NOTE | 2025-01-05 18:34 | DI.MRI.S_ITS ---
PROCEDURE: MR SHOULDER RT WO/W CON INDICATIONS: Mass about shoulder 4x4, growing TECHNIQUE: Noncontrast oblique coronal T1 spin echo and T2 fast spin echo with fat saturation, oblique sagittal T1 spin echo and T2 fast spin echo with fat saturation, axial T1 spin echo and T2 fast spin echo with fat saturation through the shoulder. Post- contrast oblique coronal, oblique sagittal, and axial T1 spin echo with fat saturation through the shoulder. COMPARISON: [facility], CR, XR SHOULDER RT 2+ VIEWS, 11/21/2024, 12:14. [facility], CR, XR SHOULDER RT 1V, 12/05/2024, 13:10. FINDINGS: Image quality: Excellent. Rotator cuff: Mild tendinosis of the supraspinatus, without tear. The infraspinatus is unremarkable. The teres minor is unremarkable. The subscapularis is unremarkable. No muscle edema or fatty atrophy. Bones and bursae: No significant degenerative changes of the acromioclavicular joint. Type 1 acromion. No os acromiale. Mild subacromial/subdeltoid bursitis. Mild subchondral cystic changes at the posterior greater tuberosity, reactive. No acute fracture. No focal chondral defect of the glenohumeral articulation. Capsule and soft tissues: Superior labral tear, extending anteriorly to the anterior labrum. No paralabral cyst. Mild tenosynovitis of the extra-articular biceps tendon. The intra-articular biceps tendon is unremarkable. Trace glenohumeral effusion. No intra-articular body. There is a fatty lesion measuring at least 4.0 cm on axial dimension, in the subcutaneous fat of the right medial upper back, extending superiorly to the level of the right lower neck, incompletely visualized. IMPRESSION: 1. Mild tendinosis of the supraspinatus, without tear. 2. Labral tear. 3. Mild tenosynovitis of the extra-articular biceps tendon. 4. Fatty lesion in the subcutaneous fat of the right medial upper back, extending superiorly to the right lower neck, measuring at least 4.0 cm, incompletely visualized. Recommend further evaluation with dedicated MRI with intravenous contrast, focusing on the right posterior lower neck and the right upper posterior back. Dictated by: Margie Edwards M.D. on 01/06/2025 at 11:03 Approved by: Margie Edwards M.D. on 01/06/2025 at 11:17
== END ==
LOC: MRI 18:33
PROVIDERS: Family Provider Family Medicine; PCP Family Medicine; Referring Provider Physician Assistant Surgical; Visit Provider Physician Assistant Surgical
DX: S43.491A Other sprain of right shoulder joint, initial encounter (principal); M65.921 Unspecified synovitis and tenosynovitis, right upper arm; R22.2 Localized swelling, mass and lump, trunk; R22.1 Localized swelling, mass and lump, neck; R22.30 Localized swelling, mass and lump, unspecified upper limb
CPT/HCPCS: 73223; A9579

== ENCOUNTER 2025-02-02 13:45 | Outpatient (RCR) | payer OTHER, SELFPAY ==
--- NOTE | 2024-12-31 13:07 | PT.OPPOC ---
Physical, Occupational & Speech Therapy At [facility] Current Diagnoses Unspecified sprain of right shoulder joint, subsequent encounter (12/31/24) Visit Care Team Role Provider Type Marychuy Bueno MD Family Provider Physician Primary Care Provider Specialty: Family Practice Address: [address] [place] [address], [place], [address] Email: [email or web address] Belle Smiley PA-C Attending Provider Physician Referring Provider Specialty: Orthopedic Surgery Address: [address] [place] [address], [id number] Fax: Email: [email or web address] Plan Of Care PT OP: Cervical/Upper Extremity Start: 12/31/24 11:36 Freq: Status: Active Protocol: Document 12/31/24 11:37 RICKEY (Rec: 12/31/24 12:31 RICKEY [id number]) Out-Patient Physical Therapy Visit Information Visit Information Visit Type Initial Evaluation Visit Start Time 11:30 Visit Stop Time 12:15 Visit Number 1 Number of PRESSURE CONTROLLER Visits 0 Progress Note Due 01/30/25 OP-PT Subjective Patient Comments Patient Comments History of current diagnosis: Patient presents to PT with complaints of R shoulder pain that started about 6 months ago while she was working on the [employer] for her job. She reports she was moving a case of beer when she felt a pop. She reports she went to the ED at that time and was told she strained something. She reports she worked through this pain over the summer and recently went to the ER and got a referral to orthopedics on the 21 of November. She has seen orthopedics twice and has been denied for a MRI to this point. She has not been working for the last month because of her shoulder as instructed by the orthopedic PA. She does not a history of whiplash in 2020. 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 Physical activities/ hobbies: Walking every day. Pain location: R upper trap region Pain description: achy, sharp when moving around Pain 0-10/10 (current): 6/10 Pain 0-10/10 (worst): 8/10 - using arm a little when moving things around her house Pain 0-10/10 (best): 3/10 - when resting Aggravating: Reaching, lifting, carrying items Alleviating: cyclobenzapine, maloxacam, ice, heat, tens unit Function prior to injury: Independent with all ADLs Function current: Independent with all ADLs - limited with reaching, lifting, work-related activities including carrying items and reaching Patient goals: Improve pain levels and movement in R UE Patient Questionnaires Quick Dash- Upper Extremity Quick Dash UE Score 52.3 Quick Dash UE 40 to 59% Impaired (Score 40-59) Impairment Palpation Assessment Location One Palpation Details TTP R upper trapezius region, palpable mass of swelling in upper trapezius around ~T1 level Cervical Spine Range of Motion Cervical Spine Active Degrees Testing Position Sitting Flexion 55 Extension 65 Rotation Left 80 Rotation Right 80 Comments R upper trapezius stretch: pain reproduction Shoulder Goniometric Range of Motion Shoulder Measured in Degrees Right Active Testing Position Sitting Flexion 140 Abduction 135 External Rotation at 90 90 degrees Abduction External Rotation at 35 0 degrees Abduction Comments PROM: Flexion: 165 - pain reproduction Abduction: 160 - pain reproduction ER: 90 IR: 35 Left Active Shoulder ROM WFL Yes Flexion 180 Abduction 180 External Rotation at 90 90 degrees Abduction Internal Rotation 35 Special Tests Shoulder Special Tests Special tests Comments Open can: + R Empty can: + R Speeds test: - B Drop sign: - B Shoulder Strength Shoulder Manual Muscle Testing Left Flexion 5 Normal Abduction (C5) 5 Normal External Rotation 5 Normal Internal Rotation 5 Normal Right Flexion 3+ Fair+ Abduction (C5) 4 Good External Rotation 3+ Fair+ Internal Rotation 5 Normal Comments Pain reproduction with flexion, ER MMTs Physical Therapy Assessment Rehab Potential Rehabilitation Good Potential Evaluation Complexity Number of Personal 0 Factors/ Comorbidities Number of Body 1-2 Systems Impaired Clinical Stable Presentation at Evaluation Impairments Impairments Activity Tolerance,Coordination,Edema,Functional Activities,Functional Mobility,Pain,Posture,ROM, Strength Goals Three Impairment General function/ disability Short Term Goal (STG Patient will demonstrate a reduction in QuickDASH score ) to a 42 in order to show a reduction in perceived disability. STG Duration 4 weeks Label Designer Goal (LTG) Patient will demonstrate a reduction in QuickDASH score to a 32 in order to show a reduction in perceived disability. LTG Duration 8 weeks Two Impairment R shoulder strength Short Term Goal (STG Patient will demonstrate an increase in R shoulder MMT ) to 4/5 in order to better function with lifting and carrying items. STG Duration 4 weeks Senior Care Goal (LTG) Patient will demonstrate an increase in R shoulder MMT to 5/5 in order to better function with lifting and carrying items. LTG Duration 8 weeks One Impairment R shoulder ROM Short Term Goal (STG Patient will demonstrate an increase in R shoulder ) flexion AROM to 150 in order to better function with reaching overhead. STG Duration 4 weeks Label Designer Goal (LTG) Patient will demonstrate an increase in R shoulder flexion AROM to 160 in order to better function with reaching overhead. LTG Duration 8 weeks Assessment Summary Assessment Patient presenting to PT with complaints of R shoulder pain that is limiting function with reaching, lifting, and carrying things. Objective investigation revealed deficits in R strength (see objective measures: flexion , abduction ER), R shoulder ROM (See objective measures : flexion, abduction), tenderness to palpation of R upper trap region and symptom reproduction with resisted strength testing of shoulder flexion and symptom reproduction with R upper trap stretch. Presentation is consistent with R upper trap strain and patient will benefit from PT to address deficits and return to prior level of function. Physical Therapy Plan Frequency and Duration Frequency of 2x/Week Treatment Duration of 12 treatment (weeks) Plan of Care Start 12/31/24 Date Plan of Care End 03/31/25 Date Therapeutic Interventions Therapeutic Balance Training,Coordination Training,Home Exercise Interventions Program,Joint Mobilizations,Manual Therapy, Neuromuscular Re-education,Patient/Caregiver Education, Self-Care/Home Management,Soft Tissue Mobilization, Taping,Therapeutic Activities,Therapeutic Exercises Modalities Biofeedback,Cold Pack/Ice Massage,Electric Stimulation, Hot Packs,Infrared Therapy,Iontophoresis,Ultrasound, Vasopneumatic Devices Next Visit Focus/Plan Next Note Type Treatment Note Next Visit Plan Initiate plan of care with focus on progressive shoulder ROM and strengthening in symptom free ranges starting with AAROM. Current HEP: Flexion table slides Abduction table slides Abduction dowel AAROM R upper trap stretch Plan of Care Dates Plan of Care Start Date 12/31/24 Plan of Care End Date 03/31/25 Electronically Signed by: Beatriz Justin, PT 12/31/24 1248 If you are in agreement with this Plan of Care, please return a signed and dated copy. I have reviewed this Plan of Care and certify that the skilled therapy services above are required to meet the patient?s needs. Physician Signature Date Printed Name and Credentials Clinical Instructor Signature Printed Name and Credentials
--- NOTE | 2025-01-05 11:42 | PT.OTN ---
Current Diagnoses Unspecified sprain of right shoulder joint, subsequent encounter (01/05/25) Physical Therapy Treatment Note PT OP: Cervical/Upper Extremity Start: 12/31/24 11:36 Freq: Status: Active Protocol: Document 01/05/25 10:50 JZ (Rec: 01/05/25 11:42 JZ [id number]) Out-Patient Physical Therapy Visit Information Visit Information Visit Type Treatment Note Visit Start Time 11:30 Visit Stop Time 12:15 Visit Number 1 Number of MANAGER BUSINESS [facility]ELOPMENT [facility] Visits 0 Progress Note Due 01/30/25 OP-PT Subjective Patient Comments Patient Comments Patient reports her shoulder has been sore for the last couple days. She reports she has not been doing her exercises very much. Therapeutic Exercises Prone Exercises Cat cow Reps/Minutes x20 each direction Sitting Exercises Patricia abduction Reps/Minutes x30 Patricia flexion Reps/Minutes x20 Standing Exercises Dowel abduction Reps/Minutes x20 Dowel flexion Reps/Minutes x20 Cable row Standing Exercise Cable column Name Resistance up to 20# Reps/Minutes 3x10 Band pull apart Resistance blue band level 1 Reps/Minutes 3x10 Scapular protraction/ retraction Standing Exercise AROM, cues for symptom free ranges Name Reps/Minutes x20 Physical Therapy Assessment Goals Three Impairment General function/ disability Short Term Goal (STG Patient will demonstrate a reduction in QuickDASH score ) to a 42 in order to show a reduction in perceived disability. STG Duration 4 weeks Cold Header Goal (LTG) Patient will demonstrate a reduction in QuickDASH score to a 32 in order to show a reduction in perceived disability. LTG Duration 8 weeks Two Impairment R shoulder strength Short Term Goal (STG Patient will demonstrate an increase in R shoulder MMT ) to 4/5 in order to better function with lifting and carrying items. STG Duration 4 weeks Cold Header Goal (LTG) Patient will demonstrate an increase in R shoulder MMT to 5/5 in order to better function with lifting and carrying items. LTG Duration 8 weeks One Impairment R shoulder ROM Short Term Goal (STG Patient will demonstrate an increase in R shoulder ) flexion AROM to 150 in order to better function with reaching overhead. STG Duration 4 weeks Cold Header Goal (LTG) Patient will demonstrate an increase in R shoulder flexion AROM to 160 in order to better function with reaching overhead. LTG Duration 8 weeks Assessment Summary Assessment Treatment focused on ROM in symptom free ranges then gentle loading of trapezius musculature. Patient tolerated treatment well with increases in symptom free ranges during exercise and reduction in symptoms post- treatment. Plan next session to follow up on lasting response to today's session and follow up on MRI. Physical Therapy Plan Frequency and Duration Frequency of 2x/Week Treatment Duration of 12 treatment (weeks) Plan of Care Start 12/31/24 Date Plan of Care End 03/31/25 Date Next Visit Focus/Plan Next Note Type Treatment Note Next Visit Plan Continue with plan of care with focus on progressive shoulder ROM and strengthening in symptom free ranges. Current HEP: Flexion table slides Abduction table slides Abduction jessica Randall upper trap stretch
--- NOTE | 2025-01-09 12:22 | PT.OTN ---
Current Diagnoses Unspecified sprain of right shoulder joint, subsequent encounter (01/09/25) Physical Therapy Treatment Note PT OP: Cervical/Upper Extremity Start: 12/31/24 11:36 Freq: Status: Active Protocol: Document 01/09/25 11:35 RICKEY (Rec: 01/09/25 12:22 RICKEY [id number]) Out-Patient Physical Therapy Visit Information Visit Information Visit Type Treatment Note Visit Start Time 11:35 Visit Stop Time 12:15 Visit Number 3 Number of ACCOUNTING ADMINISTRATIVE ASSISTANT Visits 0 Progress Note Due 01/30/25 OP-PT Subjective Patient Comments Patient Comments Patient reports her shoulder was pretty sore after last session for the rest of the day and the following. Therapeutic Exercises Prone Exercises Cat cow Reps/Minutes x20 each direction Sitting Exercises Patricia abduction Reps/Minutes x30 Patricia flexion Reps/Minutes x20 Standing Exercises Dowel abduction Reps/Minutes x20 Dowel flexion Reps/Minutes x20 Cable row Standing Exercise Cable column Name Resistance up to 20# Reps/Minutes 3x10 Band pull apart Resistance blue band level 1 Reps/Minutes 3x10 Scapular protraction/ retraction Standing Exercise AROM, cues for symptom free ranges Name Reps/Minutes x20 Physical Therapy Assessment Goals Three Impairment General function/ disability Short Term Goal (STG Patient will demonstrate a reduction in QuickDASH score ) to a 42 in order to show a reduction in perceived disability. STG Duration 4 weeks Fpc Goal (LTG) Patient will demonstrate a reduction in QuickDASH score to a 32 in order to show a reduction in perceived disability. LTG Duration 8 weeks Two Impairment R shoulder strength Short Term Goal (STG Patient will demonstrate an increase in R shoulder MMT ) to 4/5 in order to better function with lifting and carrying items. STG Duration 4 weeks Fpc Goal (LTG) Patient will demonstrate an increase in R shoulder MMT to 5/5 in order to better function with lifting and carrying items. LTG Duration 8 weeks One Impairment R shoulder ROM Short Term Goal (STG Patient will demonstrate an increase in R shoulder ) flexion AROM to 150 in order to better function with reaching overhead. STG Duration 4 weeks Fpc Goal (LTG) Patient will demonstrate an increase in R shoulder flexion AROM to 160 in order to better function with reaching overhead. LTG Duration 8 weeks Assessment Summary Assessment Treatment focused on continued R shoulder ROM and strengthening. Patient tolerated treatment well with no lasting increases in pain levels. Plan next session to follow up on response to today's session and continue with plan of care. Physical Therapy Plan Frequency and Duration Frequency of 2x/Week Treatment Duration of 12 treatment (weeks) Plan of Care Start 12/31/24 Date Plan of Care End 03/31/25 Date Next Visit Focus/Plan Next Note Type Treatment Note Next Visit Plan Continue with plan of care with focus on progressive shoulder ROM and strengthening in symptom free ranges. Current HEP: Flexion table slides Abduction table slides Abduction jessica Randall upper trap stretch
--- NOTE | 2025-01-12 14:32 | PT.OTN ---
Current Diagnoses Unspecified sprain of right shoulder joint, subsequent encounter (01/12/25) Physical Therapy Treatment Note PT OP: Cervical/Upper Extremity Start: 12/31/24 11:36 Freq: Status: Active Protocol: Document 01/12/25 13:44 RICKEY (Rec: 01/12/25 14:32 RICKEY [id number]) Out-Patient Physical Therapy Visit Information Visit Information Visit Type Treatment Note Visit Start Time 13:45 Visit Stop Time 14:25 Visit Number 4 Number of SAFETY SEALER Visits 0 Progress Note Due 01/30/25 OP-PT Subjective Patient Comments Patient Comments Patient reports she had less soreness after her last session and her shoulder has been feeling okay. Therapeutic Exercises Prone Exercises Cat cow Reps/Minutes x20 each direction Standing Exercises Facepull Resistance up to purple band Reps/Minutes 3x10 Pushup plus on table Reps/Minutes 2x10 Abduction AROM Reps/Minutes x20 Flexion AROM Reps/Minutes x20 Cable row Standing Exercise Cable column Name Resistance up to 20# Reps/Minutes 3x15 Band pull apart Resistance blue band level 3 Reps/Minutes 3x10 Scapular protraction/ retraction Standing Exercise AROM, cues for symptom free ranges Name Reps/Minutes x20 Physical Therapy Assessment Goals Three Impairment General function/ disability Short Term Goal (STG Patient will demonstrate a reduction in QuickDASH score ) to a 42 in order to show a reduction in perceived disability. STG Duration 4 weeks [facility] Goal (LTG) Patient will demonstrate a reduction in QuickDASH score to a 32 in order to show a reduction in perceived disability. LTG Duration 8 weeks Two Impairment R shoulder strength Short Term Goal (STG Patient will demonstrate an increase in R shoulder MMT ) to 4/5 in order to better function with lifting and carrying items. STG Duration 4 weeks Branch Associate Goal (LTG) Patient will demonstrate an increase in R shoulder MMT to 5/5 in order to better function with lifting and carrying items. LTG Duration 8 weeks One Impairment R shoulder ROM Short Term Goal (STG Patient will demonstrate an increase in R shoulder ) flexion AROM to 150 in order to better function with reaching overhead. STG Duration 4 weeks Branch Associate Goal (LTG) Patient will demonstrate an increase in R shoulder flexion AROM to 160 in order to better function with reaching overhead. LTG Duration 8 weeks Assessment Summary Assessment Treatment focused on progressing scapular strengthening . Patient tolerated treatment well with no increases in pain levels. Plan next session to follow up on response to today's session and update HEP with more strengthening exercises pending positive response. Physical Therapy Plan Frequency and Duration Frequency of 2x/Week Treatment Duration of 12 treatment (weeks) Plan of Care Start 12/31/24 Date Plan of Care End 03/31/25 Date Next Visit Focus/Plan Next Note Type Treatment Note Next Visit Plan Continue with plan of care with focus on progressive shoulder ROM and strengthening in symptom free ranges. Current HEP: Flexion table slides Abduction table slides Abduction jessica Randall upper trap stretch
--- NOTE | 2025-02-02 14:36 | PT.OPPN ---
Current Diagnoses Unspecified sprain of right shoulder joint, subsequent encounter (02/02/25) Physical Therapy Progress Note PT OP: Cervical/Upper Extremity Start: 12/31/24 11:36 Freq: Status: Active Protocol: Document 02/02/25 13:47 RICKEY (Rec: 02/02/25 14:36 [email or web address] [id number]) Out-Patient Physical Therapy Visit Information Visit Information Visit Type Progress Note Visit Start Time 13:49 Visit Stop Time 14:29 Visit Number 5 Number of HADOOP DEVELOPER Visits 0 Progress Note Due 03/04/25 OP-PT Subjective Patient Comments Patient Comments Patient reports her shoulder region has been doing fine when she's not using it. She reports she still gets soreness after using her arm a lot but overall is doing better. She is not having pain throughout the day anymore. She plans to return to work on February 20. Patient Questionnaires Quick Dash- Upper Extremity Quick Dash UE Score 11.36 Quick Dash UE 1 to 19% Impaired (Score 1-19) Impairment Shoulder Goniometric Range of Motion Shoulder Measured in Degrees Right Active Testing Position Sitting Flexion 160 Abduction 152 External Rotation at 90 90 degrees Abduction External Rotation at 35 0 degrees Abduction Shoulder Strength Shoulder Manual Muscle Testing Right Flexion 4 Good Adduction 4 Good External Rotation 4 Good Internal Rotation 5 Normal Therapeutic Exercises Prone Exercises Cat cow Reps/Minutes x20 each direction Standing Exercises Facepull Resistance up to purple band Reps/Minutes 3x10 Pushup plus on table Reps/Minutes 2x10 Cable row Standing Exercise Cable column Name Resistance up to 20# Reps/Minutes 3x10 Band pull apart Resistance blue band level 3 Reps/Minutes 3x10 Physical Therapy Assessment Goals Three Impairment General function/ disability Short Term Goal (STG Patient will demonstrate a reduction in QuickDASH score ) to a 42 in order to show a reduction in perceived disability. Met - 02/02/2025 STG Duration 4 weeks Assistant Media Buyer Goal (LTG) Patient will demonstrate a reduction in QuickDASH score to a 32 in order to show a reduction in perceived disability. Met - 02/02/2025 LTG Duration 8 weeks Two Impairment R shoulder strength Short Term Goal (STG Patient will demonstrate an increase in R shoulder ) flexion MMT to 4/5 in order to better function with lifting and carrying items. Met - 02/02/2025 STG Duration 4 weeks Assistant Media Buyer Goal (LTG) Patient will demonstrate an increase in R shoulder flexion MMT to 5/5 in order to better function with lifting and carrying items. In progress - 02/02/2025 LTG Duration 8 weeks One Impairment R shoulder ROM Short Term Goal (STG Patient will demonstrate an increase in R shoulder ) flexion AROM to 150 in order to better function with reaching overhead. Met - 02/02/2025 STG Duration 4 weeks Shelter Goal (LTG) Patient will demonstrate an increase in R shoulder flexion AROM to 160 in order to better function with reaching overhead. Met - 02/02/2025 LTG Duration 8 weeks Assessment Summary Assessment Patient presenting to PT after four visits for R shoulder pain. Patient has made improvement with shoulder symptoms and function. Objective investigation revealed improvement with ROM (see measures: flexion, abduction AROM), strength (see measures: flexion, abduction MMTs), and function (see measures: QuickDASH) . Because of progress noted above, patient will benefit from PT for 2-3 more weeks to ensure independence with home exercises, then will be discharged with HEP. Physical Therapy Plan Frequency and Duration Frequency of 2x/Week Treatment Duration of 12 treatment (weeks) Plan of Care Start 12/31/24 Date Plan of Care End 03/31/25 Date Next Visit Focus/Plan Next Note Type Treatment Note Next Visit Plan Continue with plan of care with focus on progressive shoulder ROM and strengthening in symptom free ranges. Current HEP: Flexion table slides Abduction table slides Abduction jessica SHOOK R upper trap stretch
--- NOTE | 2025-02-09 16:46 | PT-OP ANOTE ---
Pt has cancelled last 2 appts. DETECTIVE BUREAU CHIEF left message of next appt 02/17/25 and importance of attendance for progression. Needs to get estabilished with a new PT. Suggested calling back and if wants to see PT Beatriz this week if an opening before leaves.
--- NOTE | 2025-02-11 14:07 | PT.OPDS ---
Current Diagnoses Unspecified sprain of right shoulder joint, subsequent encounter (02/02/25) Visit Care Team Role Provider Type Marychuy Bueno MD Family Provider Physician Primary Care Provider Specialty: Family Practice Address: [address] [place] [address], [address] Email: [email or web address] Smiley PA-C Attending Provider Physician Referring Provider Specialty: Orthopedics Orthopedic Surgery Address: [address] [place] [address], [address] Fax: Email: [email or web address] Visit Number Visit Number 5 Discharge Summary PT OP: Cervical/Upper Extremity Start: 12/31/24 11:36 Freq: Status: Active Protocol: Document 02/11/25 14:04 RICKEY (Rec: 02/11/25 14:07 RICKEY [id number]) Out-Patient Physical Therapy Visit Information Visit Information Visit Type Discharge Summary Physical Therapy Assessment Assessment Summary Assessment Patient canceled her remaining appointments and has not scheduled more at this time. She will be discharged on this date due to lack of follow up. Please reach out to [facility] Physical Therapy with any questions.
== END 2025-02-12 08:45 | disposition home or self-care (01) ==
LOC: PHYS 13:45
PROVIDERS: Family Provider Family Medicine; PCP Family Medicine; Referring Provider Physician Assistant Surgical; Visit Provider Physician Assistant Surgical
DX: S43.401D Unspecified sprain of right shoulder joint, subsequent encounter (principal)
CPT/HCPCS: 97110; 97161